=== PATIENT | male | born 1990 | race Caucasian/White ===

== ENCOUNTER 2018-08-12 17:41 | Emergency (ER) | payer OTHER ==
[~2018-08-12] VITALS: Ht 167.6 cm; Wt 82.6 kg
[2018-08-12 18:00] VITALS: BP 122/74
--- NOTE | 2018-08-12 18:00 | NUR ---
PT BIB SELF C/O OF L INDEX FINGER LACERATION, PT IS AOX4, V/S STABLE, NOT IN RESPIRATORY DISTRESS, KEPT RESTED AND COMFORTABLE.
--- NOTE | 2018-08-12 18:05 | NUR ---
IRAJ GRACE AT BEDSIDE FOR EVAL.
[2018-08-12] MEDS ORDERED: ACETAMINOPHEN ES 500 MG TABLET ONE (18:17)
[2018-08-12] MEDS ORDERED: TDAP [DIPH/PERTUSSIS/TET] 0.5 ML VIAL IM ONE ×2 (18:18→18:30)
[2018-08-12] MEDS ORDERED: ACETAMINOPHEN 325 MG TABLET PO ONE (18:30)
== END 2018-08-12 18:53 | disposition home or self-care (01) ==
LOC: ER 17:45
DX: S61.211A Laceration without foreign body of left index finger without damage to nail, initial encounter (principal); W26.8XXA Contact with other sharp object(s), not elsewhere classified, initial encounter; Y93.89 Activity, other specified; Y92.89 Other specified places as the place of occurrence of the external cause; Y99.8 Other external cause status
CPT/HCPCS: 12001; 90471; 90715; 99283; A4606; A6402; Z7610

== ENCOUNTER 2018-11-16 02:22 | Emergency (ER) | payer OTHER ==
[~2018-11-16] VITALS: Ht 167.6 cm; Wt 77.1 kg
--- NOTE | 2018-11-16 02:47 | NUR ---
PT BIBS. C/O "N/V 4-5 DAYS" -SOB -ACUTE DISTRESS.
[2018-11-16] MEDS ORDERED: ONDANSETRON 4 MG TAB.RAPDIS SL ONE (03:00)
[2018-11-16] MEDS ORDERED: PANTOPRAZOLE 40 MG TABLET.DR PO ONE ×2 (03:00→03:32)
[2018-11-16 03:11] LABS: BASOPHILS % (AUTO) 0.7 % (0.0-2.0); HEMATOCRIT 41 % (39-51); HEMOGLOBIN 14.1 g/dL (13.5-17.5); LYMPHOCYTES # (AUTO) 2.1 /CMM (0.8-4.8); LYMPHOCYTES % (AUTO) 42.5 % (20.0-44.0); MEAN CORPUSCULAR HGB CONC 34 g/dl (31.0-36.0); MEAN CORPUSCULAR VOLUME 91 fL (80-96); MONOCYTES # (AUTO) 0.4 /CMM (0.1-1.30); MONOCYTES % (AUTO) 8.6 % (2.0-12.0); NEUTROPHILS # (AUTO) 2.3 /CMM (1.8-8.9); NEUTROPHILS % (AUTO) 46.2 % (43.0-81.0); PLATELET COUNT (AUTO) 174 /CMM (150-450); RED BLOOD CELL COUNT(AUTO) 4.48 MIL/uL (4.5-6.0); WHITE BLOOD COUNT (AUTO) 4.9 K/uL (4.3-11.0)
[2018-11-16 03:22] LABS: CALCIUM, SERUM 9.3 mg/dL (8.5-10.1); CREATININE 0.9 mg/dL (0.6-1.3); POTASSIUM 3.7 mmol/L (3.5-5.1)
[2018-11-16 03:27] LABS: ALBUMIN 4.1 g/dL (3.4-5.0); BILIRUBIN,DIRECT 0.1 mg/dL (0.0-0.2); BILIRUBIN,TOTAL 0.5 mg/dL (0.2-1.0); TOTAL PROTEIN, SERUM 6.8 g/dL (6.4-8.2)
[2018-11-16] MEDS ORDERED: ONDANSETRON 4 MG TAB.RAPDIS ONE (03:31)
[2018-11-16 04:35] VITALS: BP 128/78
== END 2018-11-16 04:36 | disposition home or self-care (01) ==
LOC: ER 02:24
DX: R11.2 Nausea with vomiting, unspecified (principal); Z60.2 Problems related to living alone
CPT/HCPCS: 36415; 80048; 80076; 83690; 85025; 99283; A4606; Q0162

== ENCOUNTER 2019-04-27 18:38 | Emergency (ER) | payer OTHER ==
[2019-04-27] MEDS ORDERED: LIDOCAINE 2% 20 ML MDV ONE (19:10)
[2019-04-27] MEDS ORDERED: HYDROCODONE/APAP 10/325MG 1 EA TABLET PO ONE (19:30)
[2019-04-27] MEDS ORDERED: LIDOCAINE HCL/PF 1% 30 ML VIAL TP ONE (19:30)
[2019-04-27] MEDS ORDERED: HYDROCODONE/APAP 10/325MG 1 EA TABLET ONE (19:34)
== END 2019-04-28 00:26 | disposition home or self-care (01) ==
DX: S01.511A Laceration without foreign body of lip, initial encounter (principal); Z60.2 Problems related to living alone; Y04.0XXA Assault by unarmed brawl or fight, initial encounter; Y93.89 Activity, other specified; Y92.89 Other specified places as the place of occurrence of the external cause; Y99.8 Other external cause status
CPT/HCPCS: 12011; 40650; 99284; A6403; J3490 ×2

== ENCOUNTER 2019-08-11 06:57 | Emergency (ER) | payer OTHER ==
[~2019-08-11] VITALS: Ht 167.6 cm; Wt 72.6 kg
[2019-08-11 07:00] VITALS: BP 129/79
[2019-08-11] MEDS ORDERED: HYDROCODONE/APAP 5/325MG 1 EACH TABLET ONE (07:47)
[2019-08-11] MEDS ORDERED: HYDROCODONE/APAP 5/325MG 1 EACH TABLET PO ONE (08:00)
--- NOTE | 2019-08-11 08:19 | NUR ---
Patient discharged to home in stable condition. Written and verbal after care instructions given. Patient verbalizes understanding of instruction.
== END 2019-08-11 08:20 | disposition home or self-care (01) ==
LOC: ER 06:57
DX: H92.02 Otalgia, left ear (principal); F17.200 Nicotine dependence, unspecified, uncomplicated; Z98.890 Other specified postprocedural states; Z90.89 Acquired absence of other organs; Z60.2 Problems related to living alone